=== PATIENT | female | born 1950 | race Caucasian/White ===

== ENCOUNTER 2025-02-12 15:06 | Emergency (ER) | payer OTHER ==
[2025-02-12 15:39] LABS: #Basophils 0.1 thou/uL (0.0-0.2); #Eosinophils 0.1 thou/uL (0.0-0.7); #Lymphocytes 2.4 thou/uL (1.20-3.40); #Monocytes 0.5 thou/uL (0.11-0.59); #Neutrophils 3.7 thou/uL (1.40-6.50); %Basophils 1.0 % (0.0-1.0); %Eosinophils 1.4 % (0.0-10.0); %Lymphocytes 35.1 % (21.0-51.0); %Monocytes 7.9 % (0.0-10.0); %Neutrophils 54.6 % (42.0-75.0); Hematocrit 50.1 % (36.0-47.0); Hemoglobin 15.8 g/dL (12.0-16.0); Mean Corpuscular Hemoglobin 28.9 pg (27.0-31.0); Mean Corpuscular Volume 91.5 fl (78.0-98.0); Platelet Count 255 10x3/uL (130-400); Red Blood Cell (RBC) Count 5.48 mill/uL (4.20-5.40); White Blood Cell (WBC) Count 6.7 10x3/uL (4.8-10.8)
[2025-02-12 15:46] LABS: INR-International Normal Ratio 0.9; Prothrombin Time 12.7 sec (12.0-14.7)
[2025-02-12 15:47] LABS: PTT 30.9 sec (22.9-36.1)
[2025-02-12] MEDS ORDERED: Metoclopramide HCl 10 MG (2 mL) VIAL ONE (15:53)
[2025-02-12] MEDS ORDERED: diphenhydrAMINE 50 MG/ML VIAL ONE (15:53)
[2025-02-12 15:59] LABS: ALT (SGPT) 12 U/L (Less than 34); AST (SGOT) 29 U/L (11-34); Albumin 3.8 g/dL (3.1-4.5); Alkaline Phosphatase 97 U/L (40-110); Anion Gap 16 mmol/L (10-20); BUN (Urea Nitrogen) 19 mg/dL (9.8-20.1); Bilirubin, Total 0.5 mg/dL (0.3-1.2); Calc. Creatinine Clearance 0 mL/min (70-130); Calcium 8.6 mg/dL (7.8-10.44); Carbon Dioxide 23 mmol/L (23-31); Chloride 102 mmol/L (98-107); Globulin 4.2 g/dL (2.4-3.5); Glucose 399 mg/dL (83-110); Magnesium 2.3 mg/dL (1.6-2.6); Potassium 4.2 mmol/L (3.5-5.1); Sodium 137 mmol/L (136-145); Troponin I 0.031 ng/mL (< 0.028)
[2025-02-12 16:52] LABS: Glucose, Urine (Dipstick) >=1000 mg/dL (Negative); Leukocyte Negative (Negative); Protein, Urine (Dipstick) Negative (Neg-Trace); Specific Gravity, Urine 1.015 (1.005-1.030)
[2025-02-12 16:56] LABS: Bacteria/HPF Rare-Few HPF (None Seen); CAUTI Indications for Culture Dysuria,urgency,freq; RBC/HPF 0-3 HPF (0-3); Urine Culture Reflex No No
== END 2025-02-12 17:13 | disposition home or self-care (01) ==
LOC: MADERS 15:06
DX: R51.9 Headache, unspecified (principal); R53.1 Weakness; R73.9 Hyperglycemia, unspecified; I10 Essential (primary) hypertension
CPT/HCPCS: 70450; 80053; 81001; 83735; 83880; 84484; 85025; 85610; 85730; 93005; 94760; 96361; 96374; 96375; J1200; J2765; J7030